=== PATIENT | male | born 1965 | race Caucasian/White ===

== ENCOUNTER → 2017-02-02 | Day surgery (SDC) | payer OTHER ==
[~2017-02-02] MED LIST: BP MED PO; CIPRO PO; HYDROCHLOROTHIA25 MG PO; ROBAXIN500 MG PO
--- NOTE | ~2017-02-02 | OR ---
Unit #: [id number] #: [id number] Patient: ROCK RIVERA [id number] [facility]. [address] [place], [place] [address] [id number] MR#: [id number] NAME: ROCK RIVERA ROOM: Date of Procedure: 02/02/2017 Admission Date: 02/02/2017 Surgeon: Primo Eason M.D. : 1965 Attending Physician: Primo Eason M.D. Primary Care Physician: Dar Garcia M.D. OPERATIVE REPORT PRIMARY CARE PHYSICIAN Dar Garcia M.D. PREOPERATIVE DIAGNOSES The patient presented for colorectal cancer screening. Incidentally, his brother who had colon cancer at age 60. PROCEDURE PERFORMED Colonoscopy up to cecum with fair prep and visualization. POSTOPERATIVE DIAGNOSES Mild sigmoid diverticulosis, otherwise normal examination up to cecum. No polyps were seen. RECOMMENDATIONS Repeat colonoscopy in 5 years. SEDATION USED MAC. DESCRIPTION OF PROCEDURE Following detailed explanation of potential risks and complications of a colonoscopy, namely perforation, bleeding, and complications related to sedation, the patient was brought to GI lab and laid in the left lateral decubitus position. A digital rectal examination was performed, which was normal. Lubricated tip of the Olympus video colonoscope was inserted through the anus and advanced under direct vision. The scope was advanced and passed up to sigmoid into descending colon. Scant small diverticula were noted in this area. The scope tip was then navigated all the way up to cecum with visualization of the ileocecal valve and the appendiceal orifice. Preparation was good with good visualization and photodocumentation was obtained. Last few inches of the terminal ileum also visualized after intubation of the ileocecal valve and appeared normal. Successive segments of the colonic mucosa were examined upon withdrawal and appeared unremarkable. There being no polyps, mass lesions, or AVMs. Other than the scant diverticula seen in the left side, no other abnormalities noted. The patient did not have any hemorrhoids at anal verge. The scope was then withdrawn. The patient returned to the recovery area. He tolerated the procedure without any postprocedure complications. Unit #: [id number] #: [id number] Patient: ROCK RIVERA Dictated by... Alivia Heck/teddy TD: 02/02/2017 13:18 JOB #: [id number] OPERATIVE REPORT Page 1 of 1 X Primo Eason MD PROCEDURE OPERATIVE NOTE
== END | disposition home or self-care (01) ==
LOC: COPS 07:16
DX: Z12.11 Encounter for screening for malignant neoplasm of colon (principal); K57.30 Diverticulosis of large intestine without perforation or abscess without bleeding; Z80.0 Family history of malignant neoplasm of digestive organs; Z88.0 Allergy status to penicillin; Z79.899 Other long term (current) drug therapy; Z98.818 Other dental procedure status; Z98.890 Other specified postprocedural states
CPT/HCPCS: J2250